=== PATIENT | male | born 1995 ===

== ENCOUNTER 2016-03-23 07:11 | Emergency (ER) | payer OTHER ==
[~2016-03-23] VITALS: Ht 172.7 cm; Wt 81.2 kg
[~2016-03-23 07:11] MED LIST: DEXT1CAP8 PO; DEXTSYP41 PO; IBUP-1050 PO
[2016-03-23 07:20] VITALS: TEMP 36.9; Ht 172.7 cm; Wt 81.2 kg
[2016-03-23] MEDS ORDERED: SODIUM CHLORIDE 0.9% 1000ML 1,000 ML IV STA (07:59)
[2016-03-23 08:18] VITALS: O2SAT 98
[2016-03-23 08:22] LABS: BASO % 0.2 %; BASO ABS # 0.02 K/uL (0-0.2); COMPLETE YES; HEMATOCRIT 44.8 % (42-52); IG% 0.2 %; LYMPH % 16.3 %; MEAN CORPUSCULAR HEMOGLOBIN 30.6 pg (25-34); MEAN CORPUSCULAR HGB CONC 34.8 g/dl (32-36); MEAN PLATELET VOLUME 10.4 fL (7.4-10.4); NEUT % 75.3 %; PLATELET COUNT 195 K/uL (130-400); RED BLOOD COUNT 5.09 M/uL (4.7-6.1); WHITE BLOOD COUNT 9.23 K/uL (4.8-10.8)
[2016-03-23 08:35] LABS: INR 1.1 (0.9-1.1)
[2016-03-23 08:41] LABS: BUN/CREATININE RATIO 17.5 (10-20); CALCIUM 8.6 mg/dl (8.5-10.1); CREATININE 1.2 mg/dl (0.60-1.40)
--- NOTE | 2016-03-23 08:43 | EMERGENCY ROOM VISIT NOTE ---
History First contact with patient: 07:22 Chief Complaint: SYNCOPE Stated Complaint: FAINTED,FELL,BLOODY NOSE Nursing Triage Summary: Pt states he woke up this morning, went to use the restroom and had a syncopal episode lasting 3-5 mins. Abrasion, epistaxis, cut upper gum. Reports two previous syncopal episodes last year as a result of dehydration. Denies recent illness. History of Present Illness The patient is a 20 year old male who presents to the Emergency Department by private vehicle for evaluation after syncopal episode. The patient reports that he awoke this morning and while urinating he felt dizzy and lightheaded. He reports that he drank a lot of water and then went back to sit at the edge of his bed. He felt extremely dizzy and then awoke on the floor. He reports that he struck his face on the ground. He was unconscious for an unknown amount of time. He reports that it could not have been more than 3-5 minutes. He did not bite his tongue. He did not urinate himself. There is no history of seizure disorder otherwise. There was no postictal state. He complains of bleeding to the nostrils which has since resolved. He does report a history of similar syncopes in the past. 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 There has been no new supplements. He has used no anabolic steroids. He denies any presyncope chest pain, palpitations, short of breath, nausea, or vomiting. The patient reports he currently has decreased his caloric intake secondary to his lifting regime. He reports this is typically when he has his syncopal episodes. The patient complains of pain to the nose rating his discomfort is 7/10. He currently denies any headaches, dizziness, blurry vision, double vision, slurred speech, facial droop, unilateral weakness/ numbness, neck pain, extremity pain, back pain, chest pain, or abdominal pain. Review of Systems A complete 10-point Review of Systems was discussed with the patient, with pertinent positives and negatives listed in the History of Present Illness. All remaining Review of Systems questions can be considered negative unless otherwise specified. Past Medical/Surgical History Medical Problems: (1) No significant active problems Social History Smoking Status: Never Smoker Smokeless Tobacco Use: No Alcohol Use: none Drug Use: none Marital Status: single Housing Status: lives with roommate Occupation Status: [employer] student Current/Historical Medications Scheduled Amoxicillin (Amoxil), 500 MG PO TID Allergies Coded Allergies: No Known Allergies (Unverified , 01/02/16) Physical Exam Vital Signs Date Time Temp Pulse Resp B/P Pulse Ox O2 Delivery O2 Flow Rate FiO2 03/23/16 11:02 62 17 120/64 100 03/23/16 10:04 62 17 120/64 100 Room Air 03/23/16 08:20 65 16 123/73 99 03/23/16 08:18 98 Room Air 03/23/16 08:17 69 126/60 84 125/69 96 123/73 03/23/16 08:14 79 03/23/16 07:20 36.9 74 18 155/95 99 Room Air Pain Rating (0-10): 7 Physical Exam VITAL SIGNS - Vital signs and nursing notes were reviewed. GENERAL - 20-year-old male appearing his stated age. Communicates well with provider and answers questions appropriately. HEAD - Normocephalic, Atraumatic. No Whitt's Sign or Raccoon's Eyes. No depressed skull fractures palpable. EYES - PERRL with EOMI bilaterally. Without subconjunctival hemorrhage. Palpebral conjunctiva pink and moist with no injection. EARS - No deformities of external structures noted on gross examination bilaterally. No hemotympanum present. No tympanic perforation noted. Handle of malleus, umbo, cone of light, pars tensa/flaccid all easily visualized. NOSE - Midline and without cyanosis. Abrasions noted to the nose w/ TTP. No epistaxis or clear watery discharge noted. Septum midline without deviation. No septal hematoma noted. No overlying ecchymosis noted. MOUTH/OROPHARYNX - Without perioral cyanosis. Small 1.0 cm superficial laceration noted to the inner surface of the upper lip. Edges minimally gape apart with traction. No deep structures appreciated. Tongue midline with equal elevation of palate bilaterally. No blood noted in the oropharynx. No tonsillar hypertrophy, erythema, or exudates noted. No dental fractures noted. NECK - FROM assessed. No nuchal rigidity. No tenderness to palpation over the cervical spinous processes. No cervical paraspinal muscle tenderness noted. LUNGS - Chest wall symmetric without accessory muscle use, intercostals retractions, or central cyanosis. Normal vesicular breath sounds CTA B/L. No wheezes, rales, or rhonchi appreciated. CARDIAC - RRR with S1/S2. No murmur, rubs, or gallops appreciated. ABDOMEN - Abdominal contour flat without pulsations or visible masses. BS normoactive all four quadrants. EXTREMITIES - No gross deformities noted of the extremities. +3/5 radial and dorsalis pedis pulses palpated throughout. FROM with no tremors, fasciculations , or clonus noted on PROM throughout. +5/5 strength noted in UE/LE bilaterally. NEUROLOGIC - Cranial nerves II through XII grossly intact. Sensory intact to light touch throughout. Patellar reflexes +2/4. Patient able to perform rapid alternating movements appropriately. Negative Pronator Drift. PSYCH - A&Ox3 and cooperates fully with examiner. Pt is very pleasant and interacts well with examiner. Medical Decision & Procedures ER Provider Diagnostic Interpretation: Radiological imaging and reports were reviewed by myself. Radiologist's Interpretation as follows: CHEST 2 VIEWS ROUTINE CLINICAL HISTORY: syncope dyspnea COMPARISON STUDY: No previous studies for comparison. FINDINGS: The bones soft tissues and hemidiaphragms are normal. The cardiomediastinal silhouette is normal. The lungs are clear. The pulmonary vasculature is normal. IMPRESSION: Negative chest. NASAL BONES MIN 3 VIEWS CLINICAL HISTORY: syncope - nasal injury trauma. Pain. COMPARISON STUDY: None FINDINGS: Nondisplaced cortical fracture nasal bones. Maxillary spine is intact. All major sinuses are considered clear. IMPRESSION: Nondisplaced fracture nasal bones. Laboratory Results 03/23/16 08:10 Red Blood Count 5.09, Mean Corpuscular Volume 88.0, Mean Corpuscular Hemoglobin 30.6, Mean Corpuscular Hemoglobin Concent 34.8, Mean Platelet Volume 10.4, Neutrophils (%) (Auto) 75.3, Lymphocytes (%) (Auto) 16.3, Monocytes (%) (Auto) 7.0, Eosinophils (%) (Auto) 1.0, Basophils (%) (Auto) 0.2, Neutrophils # (Auto) 6.95, Lymphocytes # (Auto) 1.50, Monocytes # (Auto) 0.65, Eosinophils # (Auto) 0.09, Basophils # (Auto) 0.02 03/23/16 08:10 Test 03/23/16 08:10 03/23/16 08:16 03/23/16 09:25 White Blood Count 9.23 K/uL (4.8-10.8) Red Blood Count 5.09 M/uL (4.7-6.1) Hemoglobin 15.6 g/dL (14.0-18.0) Hematocrit 44.8 % (42-52) Mean Corpuscular Volume 88.0 fL (80-100) Mean Corpuscular Hemoglobin 30.6 pg (25-34) Mean Corpuscular Hemoglobin Concent 34.8 g/dl (32-36) Platelet Count 195 K/uL (130-400) Mean Platelet Volume 10.4 fL (7.4-10.4) Neutrophils (%) (Auto) 75.3 % Lymphocytes (%) (Auto) 16.3 % Monocytes (%) (Auto) 7.0 % Eosinophils (%) (Auto) 1.0 % Basophils (%) (Auto) 0.2 % Neutrophils # (Auto) 6.95 K/uL (1.4-6.5) Lymphocytes # (Auto) 1.50 K/uL (1.2-3.4) Monocytes # (Auto) 0.65 K/uL (0.11-0.59) Eosinophils # (Auto) 0.09 K/uL (0-0.5) Basophils # (Auto) 0.02 K/uL (0-0.2) RDW Standard Deviation 43.7 fL (36.4-46.3) RDW Coefficient of Variation 13.5 % (11.5-14.5) Immature Granulocyte % (Auto) 0.2 % Immature Granulocyte # (Auto) 0.02 K/uL (0.00-0.02) Prothrombin Time 12.0 SECONDS (9.0-12.0) Prothromb Time International Ratio 1.1 (0.9-1.1) Activated Partial Thromboplast Time 25.8 SECONDS (21.0-31.0) Partial Thromboplastin Ratio 1.0 Anion Gap 9.0 mmol/L (3-11) Est Creatinine Clear Calc Drug Dose 95.0 ml/min Estimated GFR () 100.3 Estimated GFR (Non- 86.5 BUN/Creatinine Ratio 17.5 (10-20) Calcium Level 8.6 mg/dl (8.5-10.1) Magnesium Level 2.0 mg/dl (1.8-2.4) Total Bilirubin 0.8 mg/dl (0.2-1) Aspartate Amino Transf (AST/SGOT) 36 U/L (15-37) Alanine Aminotransferase (ALT/SGPT) 35 U/L (12-78) Alkaline Phosphatase 105 U/L (45-117) Total Creatine Kinase 406 U/L (39-308) Creatine Kinase MB 1.8 ng/ml (0.5-3.6) Creatine Kinase MB Ratio 0.4 (0-3.0) Total Protein 7.7 gm/dl (6.4-8.2) Albumin 3.9 gm/dl (3.4-5.0) Globulin 3.8 gm/dl (2.5-4.0) Albumin/Globulin Ratio 1.0 (0.9-2) Lipase 113 U/L (73-393) Thyroid Stimulating Hormone (TSH) 1.040 uIu/ml (0.300-4.500) Bedside Troponin I 0.000 ng/ml (0-0.045) Urine Color YELLOW Urine Appearance CLEAR (CLEAR) Urine pH 6.0 (4.5-7.5) Urine Specific [place] 1.025 (1.000-1.030) Urine Protein NEG (NEG) Urine Glucose (UA) NEG (NEG) Urine Ketones 1+ (NEG) Urine Occult Blood NEG (NEG) Urine Nitrite NEG (NEG) Urine Bilirubin NEG (NEG) Urine Urobilinogen NEG (NEG) Urine Leukocyte Esterase NEG (NEG) Urine Opiates Screen NEG (NEG) Urine Methadone, Qualitative NEG (NEG) Urine Barbiturates NEG (NEG) Urine Phencyclidine (PCP) Level NEG (NEG) Ur Amphetamine/Methamphetamine NEG (NEG) MDMA (Ecstasy) Screen NEG (NEG) Urine Benzodiazepines Screen NEG (NEG) Urine Cocaine Metabolite NEG (NEG) Urine Marijuana (THC) NEG (NEG) Medications Administered Medications (Trade) Dose Ordered Sig/Esme Route Start Time Stop Time Status Last Admin Dose Admin Sodium Chloride (Nss 1000ml) 1,000 ml @ 999 mls/hr Q1H1M STAT IV 03/23/16 07:59 03/23/16 08:59 DC 03/23/16 08:19 999 MLS/HR Amoxicillin (Amoxil Cap) 500 mg NOW STAT PO 03/23/16 10:32 03/23/16 10:33 DC 03/23/16 10:56 500 MG Chlorhexidine Gluconate (Peridex Oral Soln) 15 ml NOW ONCE MT 03/23/16 10:45 03/23/16 10:46 DC 03/23/16 10:58 15 ML Procedure Patient was placed on the monitoring specialist and monitored throughout the entire extent of their stay. In addition, the patient's pulse oximetry was monitored throughout the entire stay. Any abnormalities or aberrancies were addressed appropriately. ECG Indication: syncope Rate (beats per minute): 69 Rhythm: sinus with SA Findings: no acute ischemic change, no ectopy Comparison ECG Date: no prior available ED Course Patient was seen and evaluated by myself. Labs were drawn, saline lock in place. Orthostatic vital signs were obtained. Chest x-ray and EKG are obtained. X-ray of the facial bones was obtained. Laboratory results demonstrate no acute leukocytosis, worrisome anemia, or bandemia. The patient has no significant electrolyte abnormalities. Imaging studies above. Cardiac enzymes are negative. Troponin is negative. Laboratory results and imaging studies were reviewed with the patient who acknowledges understanding. The patient was provided amoxicillin and Peridex prophylactically for his inner mouth laceration. He was educated on worrisome symptoms for return visit to the emergency department. Patient discharged home in good condition. Medical Decision Given the patient's presentation and stated complaints, I did elect to perform the above-mentioned workup. The patient presents today after sustaining a syncopal episode this morning. He has had sacral episodes in the past. The patient has had decreased caloric intake and has had heavy exercise. His sink be did not occur during exertion. He had presyncopal symptoms consistent with vasovagal episode. He has no EKG changes or ectopy noted. Imaging studies do demonstrate a small nasal fracture. In addition, he has a laceration of the undersurface the mouth which does not require repair. Patient will be covered prophylactically with amoxicillin and next mouthwash. He will follow-up with ENT for his nasal fracture. He was encouraged to continue to maintain hydration and increase his caloric intake. He was educated on worrisome symptoms for return visit to the emergency department. Patient discharged home in good condition. In the evaluation and treatment of this patient, the following differential diagnoses were considered: DC, ASC, Dysrhythmia, Angina, Mediastinitis, GERD, Esophagitis, PE, Pneumonia, Bronchitis, Costochondritis, Rib Fracture, Zoster. Impression Primary Impression: Syncope Additional Impressions: Nasal bone fracture Laceration of mouth Departure Information Dispostion Home / Self-Care Condition GOOD Prescriptions Amoxicillin (AMOXIL) 500 Mg Cap 500 MG PO TID for 7 Days, #21 CAP Prov: Willian Miner PA-C 03/23/16 Referrals No Doctor, Assigned (PCP) Dale Flowers D.O. Patient Instructions Broken Nose - [facility], ED Laceration Lip Mouth , [facility] Additional Instructions You've been seen in the emergency department today after a syncopal episode. Please drink plenty of fluids and stay well-hydrated. You sustained a laceration to the inner mouth. Please use the antibiotics and Peridex mouth wash as recommended. For pain control, you can use the following [id number] medicines (if >12 yo): - Regular strength (325mg/tab) Tylenol (acetaminophen) 2 tabs every 4-6 hours as needed. Do not exceed 12 tablets in a 24 hour period. Avoid taking more than 4 grams (4000 mg) of Tylenol per day. This includes any other sources of acetaminophen you may take on a regular basis. - Regular strength (200 mg/tab) Advil (ibuprofen) 1-2 tabs every 4-6 hours as needed. Do not exceed a dose of 3200 mg per day. Follow-up with ENT within the next 3 days as discussed. Return for any changing or worsening symptoms. Problem Qualifiers Primary Impression: Syncope Syncope type: vasovagal syncope Qualified Codes: R55 - Syncope and collapse Additional Impressions: Nasal bone fracture Encounter type: initial encounter Fracture type: closed Qualified Codes: S02.2XXA - Fracture of nasal bones, initial encounter for closed fracture Laceration of mouth Encounter type: initial encounter Qualified Codes: S01.512A - Laceration without foreign body of oral cavity, initial encounter
[2016-03-23 08:52] LABS: CKMB/CK RATIO 0.4 (0-3.0); THYROID STIMULATING HORMONE 1.04 uIu/ml (0.300-4.500)
--- NOTE | 2016-03-23 08:58 | DIAGNOSTIC IMAGING REPORT ---
NASAL BONES MIN 3 VIEWS CLINICAL HISTORY: syncope - nasal injury trauma. Pain. COMPARISON STUDY: None FINDINGS: Nondisplaced cortical fracture nasal bones. Maxillary spine is intact. All major sinuses are considered clear. IMPRESSION: Nondisplaced fracture nasal bones. Electronically signed by: Ty Warner M.D. 03/23/2016 8:57 AM Dictated Date/Time: 03/23/2016 8:57 AM
--- NOTE | 2016-03-23 08:58 | DIAGNOSTIC IMAGING REPORT ---
CHEST 2 VIEWS ROUTINE CLINICAL HISTORY: syncope dyspnea COMPARISON STUDY: No previous studies for comparison. FINDINGS: The bones soft tissues and hemidiaphragms are normal. The cardiomediastinal silhouette is normal. The lungs are clear. The pulmonary vasculature is normal. IMPRESSION: Negative chest. Electronically signed by: Ty Warner M.D. 03/23/2016 8:57 AM Dictated Date/Time: 03/23/2016 8:56 AM
[2016-03-23] MEDS ORDERED: AMOXICILLIN 250 MG CAP PO STA (10:32)
[2016-03-23] MEDS ORDERED: AMOX500C3 PO (10:44)
[2016-03-23] MEDS ORDERED: CHLORHEXIDINE GLUCONATE 0.12% 480 ML MT ONE (10:45)
[2016-03-23 11:02] VITALS: BP 120/64; PULSE 62; O2SAT 100
[2016-03-23 11:17] LABS: URINE APPEARANCE CLEAR (CLEAR); URINE BILIRUBIN NEG (NEG); URINE COLOR YELLOW; URINE NITRITE NEG (NEG); URINE SPECIFIC GRAVITY 1.025 (1.000-1.030); UROBILINOGEN NEG (NEG); ZZUR CULT IF INDIC CLEAN CATCH NO
[2016-03-23 11:29] LABS: MANUAL MICROSCOPIC REQUIRED? NO; REVIEW REQ? NO
[2016-03-23 11:57] LABS: BENZODIAZEPINE, URINE NEG (NEG); COCAINE,URINE NEG (NEG); PHENCYCLIDINE, URINE NEG (NEG)
== END 2016-03-23 11:03 | disposition home or self-care (01) ==
LOC: C.EDB 07:12 → C.EDA 11:03
DX: R55 Syncope and collapse (principal); S02.2XXA Fracture of nasal bones, initial encounter for closed fracture; S01.512A Laceration without foreign body of oral cavity, initial encounter; W06.XXXA Fall from bed, initial encounter; S00.31XA Abrasion of nose, initial encounter